=== PATIENT | female | born 1955 | race Caucasian/White ===

== ENCOUNTER 2021-06-22 22:29 | Emergency (ER) | payer OTHER ==
[~2021-06-22] VITALS: Ht 160 cm; Wt 83.9 kg
[~2021-06-22 22:29] MED LIST: ALENDRONATE; AMBIEN 10 MG TA10 MG; BENZTROPINE MESY2 MG PO; CLONAZEPAM 1 MG1 M1 PO; CLONAZEPAM PO; CLONAZEPAM1 GM PO; EFFEXOR XR150 MG PO; ENABLEX 7.5 MG7.5 M1; ENABLEX 7.5 MG7.5 M1 PO; HALOPERIDO100 MG/11 IM; LEXAPRO20 MG PO; LITHATE20 MG; OMEPRAZOLE; OMEPRAZOLE 20 M20 M1 PO; RESTORIL30 MG PO; VITAMIN B-12250 MC2; VITAMIN D1000 UNI1; VIVELLE1 EAC1 TD
[2021-06-22] MEDS ORDERED: CEFDINIR300 MG PO (23:21)
[2021-06-22] MEDS ORDERED: ELIQUIS5 MG PO (23:22)
[2021-06-22] MEDS ORDERED: KLOR-CON M2020 MEQ PO (23:23)
[2021-06-22] MEDS ORDERED: LEVO-T25 MCG PO (23:24)
[2021-06-22] MEDS ORDERED: BREZTRI AEROS10.7 GM INH (23:25)
[2021-06-22] MEDS ORDERED: LIPITOR 20 MG T20 M1 PO (23:25)
[2021-06-22] MEDS ORDERED: OLANZAPINE15 MG PO (23:44)
[2021-06-22] MEDS ORDERED: FAMOTIDINE 20 M20 MG PO (23:44)
[2021-06-22] MEDS ORDERED: LEVOTHYROXINE88 MCG PO (23:45)
[2021-06-23 04:45] VITALS: BP 103/44
== END 2021-06-23 04:48 ==
LOC: ER 22:29
PROVIDERS: Emergency Medicine
DX: F91.9 Conduct disorder, unspecified (principal); Z20.822 Contact with and (suspected) exposure to COVID-19; Z98.890 Other specified postprocedural states; Z90.710 Acquired absence of both cervix and uterus; Z90.89 Acquired absence of other organs; Z79.891 Long term (current) use of opiate analgesic; Z79.1 Long term (current) use of non-steroidal anti-inflammatories (NSAID); Z79.899 Other long term (current) drug therapy; Z88.5 Allergy status to narcotic agent; Z88.0 Allergy status to penicillin; Z88.8 Allergy status to other drugs, medicaments and biological substances

== ENCOUNTER 2021-06-23 04:48 | Inpatient (IN) | payer OTHER ==
[~2021-06-23] VITALS: Ht 170.2 cm; Wt 62.1 kg
[~2021-06-23 04:48] MED LIST changes: +BREZTRI AEROS10.7 GM INH; +CEFDINIR300 MG PO; +ELIQUIS5 MG PO; +FAMOTIDINE 20 M20 MG PO; +KLOR-CON M2020 MEQ PO; +LEVO-T25 MCG PO; +LEVOTHYROXINE88 MCG PO; +LIPITOR 20 MG T20 M1 PO; +OLANZAPINE15 MG PO
[2021-06-23 05:10] VITALS: BP 114/57
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
[2021-06-23 09:25] VITALS: BP 107/57
--- NOTE | 2021-06-23 10:32 | NUR ---
New admit to [facility] with bipolar. Confused. Team meeting today-pt lives alone, poor living conditions. On regular diet. Current wt 142 lb with BMI of 22.3. Ate 25% breakfast. Will follow further wt trends and intake trends to determine if further nutrition intervention needed. On B12 and lipitor. Assess intake trends Monday. Otherwise low nutrition risk
[2021-06-23 11:29] LABS: CHOLESTEROL 153 mg/dL (<200); HDL CHOLESTEROL 45 mg/dL (>40); LDL CHOLESTEROL 89 mg/dL (<100); TC:HDL 3.4 Ratio (Not establshd); TRIGLYCERIDE 96 mg/dL (<150); VLDL 19 mg/dL (<40)
[2021-06-23 15:03] LABS: CALCIUM 9.5 mg/dL (8.5-10.1); CREATININE 0.5 mg/dL (0.6-1.0); MAGNESIUM 1.9 mg/dL (1.8-2.4); POTASSIUM 4.1 mmol/L (3.5-5.1)
--- NOTE | 2021-06-23 16:12 | NUR ---
Patient care resummed, patient located in her room resting in asemi-fowlers position. A&O*2, lung sounds clear bilaterally, abdomen soft with bowel sounds present*4, V/S present hypotensive 107/57 and an O2-95% Patient denies SI/HI/AVH, anxiety, depression, and pain. Patient appears to DIRECTOR OF CARDIAC CATH LAB Manic, noting fight of ideas, hyperverbal, and grandiose. Medications were re-evaluated today by the TRUCKING MANAGER/Hospitalist and ajustments were made. PT/OT were ordered today for the patient after assessments were completed. Patient requested to have a "yellow" bracelet but then later refuses to wear the yellow T-Shirt. Patient ambulates without assistance, and is medication/meal compliant. Patient attended groups today after being reminded by staff during start time. Labs were drawn and reviewed. Will continue to monitior for safety and behaviors.
[2021-06-23 19:08] VITALS: BP 109/40
[2021-06-23 19:10] VITALS: BP 173/76
[2021-06-23 20:03] LABS: URINE BILIRUBIN NEGATIVE (Negative); URINE BLOOD NEGATIVE (Negative); URINE CLARITY CLEAR; URINE COLOR YELLOW; URINE GLUCOSE-RANDOM* NEGATIVE (Negative); URINE KETONES NEGATIVE (Negative); URINE LEUKOCYTES-REFLEX NEGATIVE (Negative); URINE NITRITE-REFLEX NEGATIVE (Negative); URINE PROTEIN (DIPSTICK) NEGATIVE (Negative); URINE UROBILINOGEN 0.2 E.U./dl (0.2-1.0)
[2021-06-23 22:52] VITALS: BP 109/40
--- NOTE | 2021-06-23 22:58 | NUR ---
At onset of casino shift manager pt was sleeping in bed. This shift pt was alert with broad affect. Pt was calm, pleasant and cooperative. Slightly hyperverbal and tangential. Pt was compliant with her medication and vital signs. Pt ate evening snack. Pt isolated to her room in the evening. Pt denied SI, HI and AVH. Pt did not make any delusional statements to this RN. Pt is a low fall risk. Will continue to monitor.
[2021-06-24 07:09] LABS: GLYCOHEMOGLOBIN (HGB A1C) 5.6 % (4.8-5.6)
[2021-06-24 08:53] VITALS: BP 116/57
[2021-06-24 11:13] VITALS: BP 116/57
--- NOTE | 2021-06-24 12:42 | NUR ---
RESUMMED CARE FROM OVERNIGHT SHIFT THIS AM, PATIENT IN ROOM LYING QUIET. PATIENT GOT UP ATE BREAKFAST TOOK MEDICATION WITHOUT INCIDENCE. PATIENT ALERT ORIENTED TIMES 4 PATIENT DENIES SI/HI/AH/VH AT PRESENT. PATIENT DENIES ANXIETY OR DEPRESSION AT PRESENT. PATIENTS ABDOMEN SOFT BOWEL SOUNDS PRESENT, PATIENTS LUNGS CLEAR. PATIENT PARTICIPATES IN GROUPS PATIENT CALM AND COOPERATIVE. WILL CONTIUE TO MONITOR PATIENT FOR SAFETY AND BEHAVIORS.
[2021-06-24 19:07] VITALS: BP 112/87
--- NOTE | 2021-06-25 03:08 | NUR ---
PATIENT HAS BEEN IN BED SINCE BEGINNING OF SHIFT. PATIENT AWOKE EASILY FOR HS MEDICATIONS AND DENIES ALL PSYCH. PATIENT STATES SHE IS FEELING GOOD AND IS READY TO LEAVE.
[2021-06-25 10:21] VITALS: BP 105/35
--- NOTE | 2021-06-25 12:46 | NUR ---
Patient has been in her room majority of shift. She came out of her room to walk with PT. Patient was medication compliant this morning. She denies feeling depressed or having thoughts of SI/HI. She is AAOx4. Patient has been calm and cooperative this shift. Patient requested to have PRN Flexiril this afternoon. She has been laying in bed all day, she said PT wore her out and that she has a headache so she does not want to come down to the dayroom. Will encourage patient to attend afternoon group session and dinner in the dayroom.
--- NOTE | 2021-06-25 17:33 | NUR ---
ZAIN met with the Pt concerning discharge. Pt stated she did not have keys to her home but was able to call her utility division project manager at [phone] to get into her home. Pt stated her daughter Rema Lam comes to the Pt's home every weekend. Pt is willing to participate in a follow up appointment with her PCP and [facility]. Pt had no questions concernin the discharge. Discharge is set for 06/28/2021 @1500. Pt will be transported home via taxi ZAIN did call the Pt's PCP office to schedule and appointment as of this note ZAIN has not recieved a call back.
[2021-06-25 19:17] VITALS: BP 109/63
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
[2021-06-26 09:45] VITALS: BP 96/47
--- NOTE | 2021-06-26 10:57 | NUR ---
Patient care resummed, patient located in bed resting comfortably. Patient ate breakfast in her room, and told staff she had a migraine so she wasn't going to come out to eat. Patient denied SI/HI/AVH, depression, and anxiety. Patient did complain of pain in her back/neck and head. Stating her pain was a 10 on a scale of 0/10, no pharmacological actions were taken first which showed reilef of the migraine. TAPING MACHINE OPERATOR informed patient that the constant lying in bed could be the cause of the sudden increase in back/neck pain. Patient agreed, and stated I need to get up and out of bed today before it gets worse. Patient has since had meals in the dayroom and attended groups. A&O*4, lung sounds diminished in lower lobes, abdomen soft;nondistended with bowel sounds present*4. V/S noted to be Hypotensive this morning; 0800- BP: 96/47 HR: 73 R:17 O2: 96% V/S were retaken @0830- BP: 105/71 HR: 93 O2: 94% Hospitalist informed during rounds. Patient is calm and cooperative although hyperverbal, will continue to monitior patient for safety and behaviors.
--- NOTE | 2021-06-26 17:59 | NUR ---
NURSING NOTES AND AM ASSESSMENTS REVIEWED-NO CHANGES REQUIRED
[2021-06-26 19:46] VITALS: BP 143/76
--- NOTE | 2021-06-26 21:11 | H ---
[facility] [place] [address] HISTORY AND PHYSICAL Name: NICOLASA ARORA Room #: 526A-A ADM IN M.R.#: [id number] Admission: 06/23/21 Attend Phys: Reggie Ramsey DO Discharge: Date of : 51 Report #: [id number] THIS REPORT FOR: cc: Bruce Licona Robin L. FNP Kerstein, Andrew H. DO ~ DATE OF SERVICE: 06/23/2021 INPATIENT PSYCHIATRIC EVALUATION ATTENDING PSYCHIATRIST: Reggie Ramsey DO COLLECTIONS OFFICER: Lisa Cohen and Malik Page MD and his hospitalist team. REASON FOR ADMISSION: The patient was transferred from [facility] ER. Concern was for dementia, self-care failure. SOURCES OF INFORMATION: Affidavit and documents from [employer], [employer] worker [phone]. Other documents were from the hospitalist involved. HISTORY OF PRESENT ILLNESS: A 65-year-old female brought in by [employer]. Apparently, the patient was found wandering around outside this morning. The patient reported that she was walking to her doctor's office. Jordan reza picked her up and took her to her primary care physician and the PCP noted that the patient's behavior was abnormal. Subsequently, sent her back to her household and contacted her manager of case to check in on her. When manager of case arrived to the patient's household, she notes her medications have not been taken. Furthermore, rotten food was noted to be inside the refrigerator. In the ER at [facility], she denied suicidal or homicidal ideation. Alert and oriented x 3. The patient has very tangential conversations regarding the history and physical being normal enough; however, as the conversation continues, the patient began talking about random things. She is redirectable. The patient reports she has not been sleeping well recently. The [place] [facility] noted she has a history of bipolar disorder, I have no idea whether that is true or not. Jeremias from the [place] [employer] [facility] worker Tina mitchell found the patient walking and brought her home. She had a broken adapter, plugged into an extension cord that was hot. She could not recall when she last ate. She had a very hard time tracking and answering questions. She was not able to take her medication. She kept going off due to her flight of ideas. She had only one container of ham to eat and the worker helped her open the can of peaches. The worker noted she does not believe the patient would have fed herself food and take her meds without help due to mental deterioration. Sink was full of water and dishes and food were on the stove burner. The patient's primary care physician is Bruce Licona [address] [address] HISTORY AND PHYSICAL Name: NICOLASA ARORA Room #: 526A-A ADM IN M.R.#: [id number] Admission: 06/23/21 Attend Phys: Reggie Ramsey DO Discharge: Date of : 51 Report #: [id number] who I contacted and left a message for. MEDICAL HISTORY: Includes hypothyroidism, psoriatic arthritis, hypertension, hyperlipidemia, migraines, COPD, benign positional paroxysmal vertigo, atrial fibrillation. PSYCHIATRIC HISTORY: Again noted, but I have no corroboration of depression, anxiety, bipolar disorder. PAST SURGICAL HISTORY: Back and neck fusion surgeries x 2 in 2016 and 2019, complete hysterectomy, bilateral foot surgeries, bilateral cataract surgery, tonsillectomy. MEDICATIONS: Reported medications are venlafaxine XR 150 mg daily, Lexapro 20 mg daily, Cogentin, calcium carbonate with D3, apixaban, potassium chloride, levothyroxine, atorvastatin, clonazepam, mecobalamin. ALLERGIES: ASPIRIN, CARBAMAZEPINE, HALOPERIDOL, PENICILLINS, PENTAZOCINE LACTATE, AND RISPERIDONE. SOCIAL HISTORY: Known tobacco use, unable to quantify frequency, duration. History of alcohol abuse. Recreational drug use is unknown. REVIEW OF SYSTEMS: From [place] [facility]: GENERAL: Denies fever, denies chills. Weight 83.92 kilos. EYES: Denies blurred vision. Denies double vision.. HEENT: Denies rhinorrhea. Denies sore throat. RESPIRATORY: Denies cough. Denies wheezing. CARDIOVASCULAR: Denies chest pain, denies palpitations. GASTROINTESTINAL: Denies nausea, denies vomiting. GENITOURINARY: Denies hematuria. Denies dysuria. SKIN: Denies rash, denies bruising. NEUROLOGIC: Denies seizures. Denies tremor. HEMATOLOGIC: Denies bruising. Denies bleeding. LABORATORY DATA: White count 6.8, H and H 10.8 and 33.0, platelet count 267 and these were slightly improved from her last labs of note 06/12. Chemistries: Sodium 144, potassium 3.5, chloride 105, bicarbonate 20, anion gap 10, BUN 16, creatinine 0.6, estimated GFR 100, glucose 95, calcium 9.3, total bilirubin 0.4, AST 25, ALT 25, alkaline phosphatase 121, total protein 6.6, albumin 3.4. TSH 0.518 on 06/10. Troponin high sensitivity is less than 4 on 06/10. Urinalysis was clean. test was negative. Urine drug screen was negative including marijuana. COVID-19 PCR was negative. PHYSICAL EXAMINATION: [facility] [address] [place] [address] HISTORY AND PHYSICAL Name: NICOLASA ARORA Room #: 526A-A ADM IN M.R.#: [id number] Admission: 06/23/21 Attend Phys: Reggie Ramsey DO Discharge: Date of : 51 Report #: [id number] VITAL SIGNS: temperature 36.7, pulse 84, respirations 18, BP 107/57, O2 sat 97%. BMI is noted at 32.8. GENERAL: Ambulates with walker, wearing [place] Royal Shirt. MENTAL STATUS EXAMINATION: This is a well-developed female apparently stated age. Attention limited and error with 3 digits reverse span on SLUMS. She actually added a digit. On SLUMS evaluation noted, total SLUMS score was 24/30. Deficits were on delayed memory, cued memory at the end. Speech normal in rate, amount, and tone. Thought process, linear and goal directed. Thought content, focused on present. Denied suicidal or homicidal ideation. No auditory or visual type hallucinations. Memory formally tested, did have the mild impairment as noted above. Insight and judgment limited. Fund of knowledge below average. FORMULATION: 65 y/o cucasian female transfereed for dementia/self-care failure evaluation. She currently has open case with [facility]. Initial testeing puts her in at least Mild Neurocognitive Disorder range. DIAGNOSES: Unspecified psychosis, appeared to rapidly resolving; Mild neurocognitive disorder; and history of mood disorders. PLAN: Admitted voluntarily to [facility]. Hospitalist is consulted. I made an effort to reach one of her kids today, the number is not working for the contact listed in [employer]. I have ordered occupational therapy eval including common evaluation of living skills, PT eval given her walker use. I spoke briefly with her [facility] worker we are going to need to revisit the case tomorrow. If her evaluations turned out favorably, she could live independently. She is probably going to be discharged Monday. I already alerted [facility] our ability to keep this patient for guardianship is really not there. She has a managed insurance, which I believe it is [employer]. Regarding the patient's medications. She is currently on olanzapine 2.5 mg at bedtime, atorvastatin 20 mg at bedtime, Eliquis 5 mg b.i.d., albuterol 2.5 mg q. 2 inhales p.r.n. shortness of air, hydrocodone-bitartrate was started by hospitalist 5/325 mg q. 6, Effexor 75 mg daily, cyanocobalamin 1000 mcg oral daily, calcium 1 tab daily, Cogentin I am actually going to discontinue because I do not see a good role for that given the tiny bit of Zyprexa she is on. levothyroxine 25 mcg daily, Pulmicort 0.5 mg inhaled twice a day. Clonazepam as scheduled 0.5 mg p.o. b.i.d. p.r.n.; I do not think that is reasonable either, so I will go ahead and discontinue that. Time spent on this case is greater than 60 minutes, greater than 50% of time reviewing records and coordination of care. [facility] [address] [place] [address] HISTORY AND PHYSICAL Name: NICOLASA ARORA Room #: 526A-A ADM IN Javier#: [id number] Admission: 06/23/21 Attend Phys: Reggie Ramsey DO Discharge: Date of : 51 Report #: [id number] STRENGTHS: She is insured, has a place to live. WEAKNESSES: At least mild neurocognitive disorder, concerns about self-care failure. ESTIMATED LENGTH OF STAY: 5-10 days. Her last head CT and head MRI were from 06/2012, ____. <ELECTRONICALLY SIGNED> By: Reggie Ramsey DO 06/26/21 2111 [id number] 190 Reggie Ramsey DO /nt
[2021-06-26 22:05] VITALS: BP 143/76
--- NOTE | 2021-06-27 05:20 | NUR ---
Yolis was alert and oriented x4 this shift. She was in the dayroom socializing with peers at the start of the shift. At the start of the shift she asked when she could get her next pain pill and was educated that the next time she could receive her hydrocodone would be at 2130. Pt took her HS medications and went to bed but woke up around 2300 asking for her hydrocodone c/o back pain. Hydrocodone given at 2303 with effectiveness as pt was noted sleeping shortly after. Pt denied SI/HI/SIDHU this shift. She was medication compliant, without difficulty. She denied other physical symptoms besides pain this shift, will continue to monitor.
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
[2021-06-27 09:33] VITALS: BP 120/51
[2021-06-27 09:36] VITALS: BP 110/69
[2021-06-27 09:37] VITALS: BP 100/50
[2021-06-27 09:38] VITALS: BP 120/51
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
[2021-06-27 19:21] VITALS: BP 110/63
[2021-06-27 20:10] VITALS: BP 110/63
--- NOTE | 2021-06-28 01:37 | NUR ---
PATIENT HAS BEEN IN BED ALL EVENING. SHE IS A/0X3. SHE STATES SHE HAS HAD A MIGRAINE THIS EVENING. HYDROCODONE PRN GIVEN WITH HER HS MEDS WELL FLEXERIL. PATIENT AWOKE 3 HOURS LATER AND REQUESTED PAIN MED FOR HEADACHE. SHE WAS RELAXED AND SLEEPING WHEN I WENT BACK TO CHECK ON HER. I EXPLAINED IT WAS TOO EARLY TO GIVE HER ANY PAIN MED. SHE SAID THAT WAS OKAY AND WENT BACK TO SLEEP. SHE DENIES SI/HI/AVH. SHE IS UP WITH WALKER AND STANDBY ASSIST. ROUTINE ROUNDS TO ASSESS SAFETY AND STATUS OF PATIENT. BED IN LOW POSITION AND BED ALARM IS ON.
[2021-06-28 08:39] VITALS: BP 128/55
[2021-06-28 12:45] VITALS: BP 128/55
[2021-06-28] MEDS ORDERED: ELIQUIS5 MG PO (13:08)
[2021-06-28] MEDS ORDERED: EFFEXOR XR75 MG PO (13:09)
[2021-06-28] MEDS ORDERED: OLANZAPINE2.5 MG PO (13:10)
[2021-06-28] MEDS ORDERED: B-12500 MCG PO (13:11)
[2021-06-28] MEDS ORDERED: CALCIUM 500 +1 EAC5 PO (13:11)
[2021-06-28 13:43] VITALS: BP 128/55
--- NOTE | 2021-06-28 16:36 | NUR ---
ZAIN spoke with Lee Ann from the Pt's PCP clinic. Lee Ann stated she would not be able to make the Pt a follow up appointment unless the Pt's daughters are able to bring Pt to the appointment. Lee Ann stated in the past when Pt had appointment , Pt would attempt to walk to the appointment on her own, Pt would get lost, has been found sitting on the side of the road, and other safety concerns. Lee Ann stated she has called the Pt's daughters and is waiting to here back concerning the matter. ZAIN had not other questions or concerns on the matter. D?C paper was faxed to the PCP's office at [phone]
--- NOTE | 2021-06-28 16:41 | NUR ---
ZAIN was able to get a hold of the chief development officer at the apartment Pt's resides ( [phone]). ZAIN was informed by they would be able to unlock the Pt's apartment. Pt will continue to discharge today via taxi
--- NOTE | 2021-06-28 19:31 | NUR ---
Yolis was alert and oriented x4 throughout the day and presented as calm, cooperative, and pleasant. She denied SI/HI/SIDHU and remained safe on the unit this shift. Pt was scheduled to D/C at 1500 this shift but due to pt not having her apartment keys ZAIN Otto reached out to see if someone could open her door to ensure a safe discharge. Once that was arranged Clarita called pt's Taxi. This RN called multiple times to check on taxi status. They stated that the cab was 7 minutes away. About 10-15 minutes later the cab had not yet called and the other day shift RN stated they don't always call to notify when they are here. Therefore this RN took pt down to the ER as to not miss pt's ride. After waiting down by the ER for about 15 minutes this RN called to check on taxi status and they informed this RN that the ride was marked as complete and that the taxi took the wrong person. They stated they would get the next available pile driver but this has not yet been assigned, therefore pt was brought back to the unit. Pt is currently receiving her scheduled breathing treatment and has been understanding of the situation. Hellen the oncoming lithopone charger was updated. This RN called to check on status of taxi prior to leaving and no pile driver assigned at this time.
[2021-06-28 21:04] VITALS: BP 146/127
[2021-06-28 21:06] VITALS: BP 130/87
--- NOTE | 2021-06-28 21:59 | NUR ---
Discharge for 06/28/21 was cancelled at approx 2150. Pt would have been unable to gain access to her apartment this late at night and it is 33 degrees outside. Pt is to stay the night in the hospital and discharge tomorrow on 06/29/21. Pt was agreeable to this plan. Pt was compliant with medications and vital signs. Pt denied SI, HI and AVH. Pt was overall calm, pleasant, and cooperative. Pt is a low fall risk. Will continue to monitor.
[2021-06-29 07:40] VITALS: BP 113/65
--- NOTE | 2021-06-29 09:56 | NUR ---
Patient care resummed, patient located in the dayroom sitting comfortably in chair watching T.V. A&O*4, lung sounds clear and unlabored, abdomen soft;nondistended with bowel sounds present*4, VSS on RM. Patient denies SI/HI/AVH, anxiety, depression and pain at this time. Patient to be D/C today via [facility] to her home. Patient is calm, cooperative, and excited to be leaving today. Meal and medication compliant, discharge education was given and items have been gathered. Will continue to monitor patient for safety and behaviors.
[2021-06-29 10:18] VITALS: BP 128/55
--- NOTE | 2021-06-29 10:25 | NUR ---
Patient discharged from facility at 1020 and escorted out by staff and assissted into [facility] van. Patient left with all items she was admitted with, including medication dispencer from pharmacy with all medications still inside. Patient ambulated off of unit with a walker and has been educated on care outside of hospital. Patient understood and left facility without complication.
--- NOTE | 2021-06-29 19:18 | D ---
[facility] [place] [address] DISCHARGE SUMMARY Name: NICOLASA ARORA Room #: 526A-A [facility] IN M.R.#: [id number] Admission: 06/23/21 Attend Phys: Reggie Ramsey DO Discharge: 06/29/21 Date of : 51 Report #: [id number] THIS REPORT FOR: cc: Bruce Licona Robin L. FNP Kerstein, Andrew H. DO ~ DATE OF SERVICE: 06/29/2021 note dsicharge was planned for 06/28 but was delyaed till AM / due to taxi to pucking her up 06/28 INPATIENT PSYCHIATRIC DISCHARGE SUMMARY ATTENDING PSYCHIATRIST: Reggie Ramsey DO EARLY CHILDHOOD SERVICES COORDINATOR: Osmany Flaherty MD DISCHARGE DIAGNOSES: Major depressive disorder, single episode, moderate degree; unspecified dementia without behavioral disturbance. The patient also had a history of delirium resolved from previous hospital she was at, I believe, that was [place], [place]. Patient will be discharging to her home. The patient's primary care provider declined to make an appointment for patient. The patient will be going to the legal compliance officer at [facility]. Her primary care provider is Dr. Bruce Licona. Also, the patient has a [facility] edge cutter who is in an active investigation with her, her name is Tina Richieestrella. DISCHARGE MEDICATIONS: Levothyroxine 75 mcg oral daily for hypothyroidism. She takes Breztri Aerosphere inhaler 2.7 grams twice daily for COPD, atorvastatin 20 mg oral daily for hyperlipidemia, famotidine 20 mg oral daily for GERD, Eliquis 5 mg oral twice daily for history of clots, Effexor XR 75 mg oral daily for depression, olanzapine 2.5 mg oral daily for augmentation of depression and to hopefully cut down on any delirium, calcium carbonate with vitamin D3 one tablet oral, cyanocobalamin 1000 mcg oral daily. Regular diet. The patient was given crisis suicide hotline information. Return to ER for chest pain, fever, seizures, increased swelling, edema and trouble breathing. No suicidal or homicidal ideations. LABORATORY DATA: This admission were limited as she came from [facility]. Chemistries noted to be sodium 142, potassium 4.1, bicarbonate 28, chloride 106, anion gap 8, BUN 14, creatinine 0.5, estimated GFR 123, glucose 88. A1c 5.6, calcium 9.5, magnesium 1.9. Additionally, LDL 89, HDL 45. B12 of 1259 which is high. TSH 2.612. Urinalysis was negative. COVID-19 serology was not detected on 06/22, 06/25, 06/27. REASON FOR ADMISSION: A 65-year-old female [place] [address] DISCHARGE SUMMARY Name: NICOLASA ARORA Room #: 526A-A [facility] IN ..#: [id number] Admission: 06/23/21 Attend Phys: Reggie Ramsey DO Discharge: 06/29/21 Date of : 51 Report #: [id number] [place] [employer]. She was found wandering around outside this morning, jude reza picked her up, brought to her PCP. She was sent back to her household and [facility] did a welfare check. She was brought in for the continued confusional state and unable to care for herself. HOSPITAL COURSE: She was sent over to [facility]. She did pretty well on our unit. She denied that she was had eficits of ufnction. In the [facility] evaluation of living skills, which did show a number of functional impairments. Her SLUMS score was a 24/30 while here and our neuropsychologist was unable to test her due to scheduling issue. She currently does not have a surrogate decision maker, so there was not a legal muscle to place her. Discussion was had with her daughter, Cris as well as the [facility] worker, Tina. Best thing we could do is to send her back home, the daughter will provide her groceries, an active [facility] case, will provide some level of supervision. The patient was advised not to drive. CONDITION AT DISCHARGE: Stable. Not suicidal or homicidal. PHYSICAL EXAMINATION: VITAL SIGNS: Temperature 35.3, pulse 84, respirations 18, BP 128/55, O2 sat 95%. BMI is wnl. MUSCULOSKELETAL: Using a walker. Fair hygiene, station. MENTAL STATUS EXAMINATION: This is a well-developed female, apparently stated age. Attention limited. Concentration limited. Speech normal rate, volume, tone. Thought process linear and goal directed. Thought content focused on discharge. mood/affect ok good cogruent euthymic Denied SI, HI. denied helplessness, hoplessness No auditory or visual hallucinations. Memory not formally tested. Insight and judgment fair to limited. Fund of knowledge, no greater than average. Prognosis is guarded, having a mild neurodegenerative disorder and history of multiple hospital presentations. [facility] worker Tina to help with better supervision at home till guardianship obtained. <ELECTRONICALLY SIGNED> By: Reggie Ramsey, 06/29/211917 22 2040 Reggie Ramsey DO /nt
== END 2021-06-29 10:20 | disposition home or self-care (01) | DRG 885 ==
LOC: SBH
PROVIDERS: Nurse Practitioner; ADMIT Psychiatry & Neurology Psychiatry; ATTEND Psychiatry & Neurology Psychiatry
DX: F32.1 Major depressive disorder, single episode, moderate (principal); F29 Unspecified psychosis not due to a substance or known physiological condition; J44.9 Chronic obstructive pulmonary disease, unspecified; G43.909 Migraine, unspecified, not intractable, without status migrainosus; Z20.822 Contact with and (suspected) exposure to COVID-19; I10 Essential (primary) hypertension; E78.5 Hyperlipidemia, unspecified; F03.90 Unspecified dementia, unspecified severity, without behavioral disturbance, psychotic disturbance, mood disturbance, and anxiety; I48.91 Unspecified atrial fibrillation; F25.9 Schizoaffective disorder, unspecified; E03.9 Hypothyroidism, unspecified; Z60.2 Problems related to living alone; F41.9 Anxiety disorder, unspecified; Z90.710 Acquired absence of both cervix and uterus; Z98.42 Cataract extraction status, left eye; Z98.41 Cataract extraction status, right eye; Z88.6 Allergy status to analgesic agent; Z88.0 Allergy status to penicillin; Z88.8 Allergy status to other drugs, medicaments and biological substances
CPT/HCPCS: 10880